=== PATIENT | female | born 1985 | race Caucasian/White ===

== ENCOUNTER 2016-10-08 20:44 | Emergency (ER) | payer BC ==
[2016-10-08 22:49] VITALS: BP 142/78
== END 2016-10-08 22:49 | disposition home or self-care (01) ==
LOC: ED 20:44
DX: M54.6 Pain in thoracic spine (principal); K29.70 Gastritis, unspecified, without bleeding; Z90.49 Acquired absence of other specified parts of digestive tract
CPT/HCPCS: J1885

== ENCOUNTER 2017-09-17 23:35 | Emergency (ER) | payer BC ==
[~2017-09-17] VITALS: Ht 162.6 cm; Wt 71.3 kg
[2017-09-17 23:48] VITALS: Ht 162.6 cm; Wt 71.3 kg
[2017-09-18 01:27] LABS: BASOPHIL % 0.3 % (0-2); PLATELET COUNT 354 x10^3mcL (130-400)
[2017-09-18 01:38] LABS: CALCIUM 9.3 mg/dL (8.5-10.1); CARBON DIOXIDE 26.7 mmol/L (21-32); CHLORIDE SERUM 102 mmol/L (98-107); CREATININE SERUM 0.7 mg/dL (0.6-1.0); GFR1 > 60 mL/min; GLUCOSE SERUM 98 mg/dL (74-106); POTASSIUM SERUM 3.7 mmol/L (3.5-5.1); SODIUM SERUM 139 mmol/L (136-145)
[2017-09-18 03:54] VITALS: BP 132/81
== END 2017-09-18 03:54 | disposition home or self-care (01) ==
LOC: ED 23:35
PROVIDERS: Emergency Medicine
DX: R07.89 Other chest pain (principal)
CPT/HCPCS: 36415; 85378; J1885

== ENCOUNTER 2018-07-06 19:01 | Emergency (ER) | payer BC ==
[~2018-07-06] VITALS: Ht 160 cm; Wt 71.2 kg
[2018-07-06 19:17] VITALS: Ht 160 cm; Wt 71.2 kg
[2018-07-06 21:47] VITALS: BP 131/56
== END 2018-07-06 21:52 | disposition home or self-care (01) ==
LOC: ED 19:01
DX: S09.90XA Unspecified injury of head, initial encounter (principal); W07.XXXA Fall from chair, initial encounter; Y93.89 Activity, other specified; Y92.009 Unspecified place in unspecified non-institutional (private) residence as the place of occurrence of the external cause; Y99.8 Other external cause status

== ENCOUNTER 2019-05-10 19:55 | Emergency (ER) | payer BC ==
[~2019-05-10] VITALS: Ht 162.6 cm; Wt 69.0 kg
[2019-05-10 19:59] VITALS: Ht 162.6 cm; Wt 69.0 kg
[2019-05-10 21:39] VITALS: BP 123/93
== END 2019-05-10 21:39 | disposition home or self-care (01) ==
LOC: ED 19:55
DX: F41.0 Panic disorder [episodic paroxysmal anxiety] (principal); G44.209 Tension-type headache, unspecified, not intractable; Z90.49 Acquired absence of other specified parts of digestive tract
CPT/HCPCS: J1885; J2060; Q0162